=== PATIENT | male | born 1960 | race Two or more races ===

== ENCOUNTER 2018-07-08 23:57 | Emergency (ER) | payer OTHER ==
[~2018-07-08] VITALS: Ht 167.6 cm; Wt 80.3 kg
--- NOTE | 2018-07-09 00:40 | NUR ---
PAUL SHAY AT BEDSIDE FOR EVAL
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
--- NOTE | 2018-07-09 00:49 | NUR ---
CIVIL PREPAREDNESS COORDINATOR AT THE BED SIDE FOR WOUND IRRIGATION
[2018-07-09] MEDS ORDERED: LIDOCAINE 0.5% HCL 50 ML VIAL ONE (01:04)
--- NOTE | 2018-07-09 01:15 | NUR ---
PAUL MALDONADO AT THE BED SIDE FOR SUTURING
[2018-07-09] MEDS ORDERED: LIDOCAINE HCL/PF 1% 30 ML VIAL TP ONE (01:30)
--- NOTE | 2018-07-09 02:24 | NUR ---
R ear lac w/ 4 intact sutures in the front and 2 inthe back was cleaned and covered w/ ATB ointment. Patient discharged to home in stable condition. Written and verbal after care instructions given. Patient verbalizes understanding of instruction.
[2018-07-09 02:39] VITALS: BP 138/75
== END 2018-07-09 02:41 | disposition home or self-care (01) ==
LOC: ER 23:59
DX: S01.311A Laceration without foreign body of right ear, initial encounter (principal); I10 Essential (primary) hypertension; W01.198A Fall on same level from slipping, tripping and stumbling with subsequent striking against other object, initial encounter; Y93.89 Activity, other specified; Y92.89 Other specified places as the place of occurrence of the external cause; Y99.8 Other external cause status
CPT/HCPCS: 12013; 99284; A6402; A6403; J3490 ×2

== ENCOUNTER 2018-12-13 16:03 | Emergency (ER) | payer OTHER ==
[~2018-12-13] VITALS: Ht 170.2 cm; Wt 70.8 kg
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
--- NOTE | 2018-12-13 16:12 | NUR ---
JASON OFFICER GIOVANI # [id number] [id number] CAME IN TO GIVE PT A COLLISION REPORT.
--- NOTE | 2018-12-13 16:28 | NUR ---
PT TAKEN BY [facility]
[2018-12-13] MEDS ORDERED: ACETAMINOPHEN 325 MG TABLET PO ONE (16:30)
[2018-12-13] MEDS ORDERED: CYCLOBENZAPRINE 10 MG TABLET PO ONE (16:30)
[2018-12-13] MEDS ORDERED: CYCLOBENZAPRINE 10 MG TABLET ONE (16:32)
[2018-12-13] MEDS ORDERED: ACETAMINOPHEN 325 MG TABLET ONE (16:32)
--- NOTE | 2018-12-13 18:09 | NUR ---
Patient discharged to home in stable condition. Written and verbal after care instructions given. Patient verbalizes understanding of instruction.
[2018-12-13 18:12] VITALS: BP 122/68
== END 2018-12-13 18:16 | disposition home or self-care (01) ==
LOC: ER 16:07
DX: R51 Headache (principal); M54.2 Cervicalgia; R07.2 Precordial pain; I10 Essential (primary) hypertension; Z60.2 Problems related to living alone; V49.49XA Driver injured in collision with other motor vehicles in traffic accident, initial encounter; Y93.89 Activity, other specified; Y92.413 State road as the place of occurrence of the external cause; Y99.8 Other external cause status
CPT/HCPCS: 70450-TC; 71045-TC; 72125-TC